=== PATIENT | female | born 1955 ===

== ENCOUNTER 2018-10-23 15:02 | Inpatient (IN) | payer OTHER ==
[~2018-10-23] VITALS: Ht 167.6 cm; Wt 108.9 kg
[2018-11-07] MEDS ORDERED: HYDROCODON-ACE1 EACH PO (13:29)
[2018-11-07] MEDS ORDERED: TRAMADOL HCL50 MG PO (13:30)
[2018-11-07] MEDS ORDERED: CEFDINIR PO (13:31)
[2018-11-14] MEDS ORDERED: INTEGRA PLUS C1 EACH PO (09:13)
[2018-11-14] MEDS ORDERED: BACTRIM DS TAB1 EACH PO (09:13)
[2018-11-14] MEDS ORDERED: OXYC1TAB9 PO (09:13)
[2018-11-14] MEDS ORDERED: XARELTO10 MG PO (09:13)
== END 2018-11-14 15:21 | DRG 470 ==
LOC: ADM 11-07 09:30 → SURH 11-11 08:00 → O/R 11-11 08:00 → SURH 11-11 15:07 → CIR.AMB 11-12 09:30 → EDBD 11-12 09:30 → EDSTATUS 11-12 09:30 → SURH 11-14 15:21
PROVIDERS: ADMIT Orthopaedic Surgery Sports Medicine
PROC: 0SRB02Z Replacement of Left Hip Joint with Metal on Polyethylene Synthetic Substitute, Open Approach (ICD-10-PCS; principal; 2018-11-11 10:30)
DX: M16.12 Unilateral primary osteoarthritis, left hip (principal); D62 Acute posthemorrhagic anemia; Z96.642 Presence of left artificial hip joint